=== PATIENT | female | born 1995 | race Caucasian/White ===

== ENCOUNTER → 2023-12-11 15:18 | Outpatient (REF) | payer BC, SELFPAY | LOC: PNTC 15:18 | PROVIDERS: ATTENDING PHYSICIAN Obstetrics & Gynecology | DX: Z36.0 Encounter for antenatal screening for chromosomal anomalies (principal); Z36.82 Encounter for antenatal screening for nuchal translucency; O34.80 Maternal care for other abnormalities of pelvic organs, unspecified trimester | CPT/HCPCS: 76801; 76813 ==

== ENCOUNTER → 2024-01-07 17:00 | Outpatient (REF) | payer BC, SELFPAY | LOC: RAD 17:00 | PROVIDERS: ATTENDING PHYSICIAN Obstetrics & Gynecology | DX: Z34.91 Encounter for supervision of normal pregnancy, unspecified, first trimester (principal); R93.89 Abnormal findings on diagnostic imaging of other specified body structures | CPT/HCPCS: 76815 ==

== ENCOUNTER → 2024-02-09 06:50 | Outpatient (REF) | payer BC, SELFPAY | LOC: PNTC 06:50 | PROVIDERS: ATTENDING PHYSICIAN Obstetrics & Gynecology | DX: E28.2 Polycystic ovarian syndrome (principal) | CPT/HCPCS: 76805 ==

== ENCOUNTER → 2024-02-20 15:15 | Outpatient (REF) | payer BC, SELFPAY ==
--- NOTE | 2024-02-20 15:32 | PN.DIAED06 ---
Meal Plan - Gestational
- Breakfast
Gestational Diabetes Meal Plan Name: 2000 calories
Breakfast - Total Carbohydrate (grams): 45
Breakfast - Starch Carbohydrate: 2
Breakfast - Fruit Carbohydrate: 0
Breakfast - Milk Carbohydrate: 1
Breakfast - Nonstarchy Vegetables: Yes
Breakfast - Meat/Protein: 1
Breakfast - Fat: 2
- Morning Snack
Morning Snack - Total Carbohydrate (grams): 30
Morning Snack - Starch Carbohydrate: 1
Morning Snack - Fruit Carbohydrate: 0
Morning Snack - Milk Carbohydrate: 1
Morning Snack - Nonstarchy Vegetables: Yes
Morning Snack - Meat/Protein: 0
Morning Snack - Fat: 0
- Lunch
Lunch - Total Carbohydrate (grams): 45
Lunch - Starch Carbohydrate: 1
Lunch - Fruit Carbohydrate: 1
Lunch - Milk Carbohydrate: 1
Lunch - Nonstarchy Vegetables: Yes
Lunch - Meat/Protein: 2
Lunch - Fat: 2
- Afternoon Snack
Afternoon Snack - Total Carbohydrate (grams): 30
Afternoon Snack - Starch Carbohydrate: 1
Afternoon Snack - Fruit Carbohydrate: 1
Afternoon Snack - Milk Carbohydrate: 0
Afternoon Snack - Nonstarchy Vegetables: Yes
Afternoon Snack - Meat/Protein: 1
Afternoon Snack - Fat: 0
- Dinner
Dinner - Total Carbohydrate (grams): 45
Dinner - Starch Carbohydrate: 2
Dinner - Fruit Carbohydrate: 1
Dinner - Milk Carbohydrate: 0
Dinner - Nonstarchy Vegetables: Yes
Dinner - Meat/Protein: 2
Dinner - Fat: 2
- Evening Snack
Evening Snack - Total Carbohydrate (grams): 45
Evening Snack - Starch Carbohydrate: 1
Evening Snack - Fruit Carbohydrate: 1
Evening Snack - Milk Carbohydrate: 1
Evening Snack - Nonstarchy Vegetables: Yes
Evening Snack - Meat/Protein: 1
Evening Snack - Fat: 0
--- NOTE | 2024-02-20 16:23 | PN.DE ---
Diabetes Education
- -
Román presented today for medical nutrition therapy. She is 22 weeks gestation with her first . Román was evaluated early for gestational diabetes since she has a history of PCOS.
I reviewed glucose metabolism in the body during and the rationale for keeping blood glucose levels within target ranges. We discussed the risks to the baby during and post with elevated glucose levels. Román was given written
material on managing gestational diabetes and I highlighted the fasting target range of <95 mg/dL and a 2 hour post of 120 mg/dL. Román demonstrated proper technique with doing a fingerstick glucose with a One Touch verio meter. We discussed the
monitoring schedule and she is aware of contacting [place] at [facility] on Friday.
Román traditionally follows a limited carbohydrate diet due to her PCOS history. She has a good knowledge base of macronutrients and often eats protein before eating any carbohydrates on a daily basis. I provided her with a 2000 calorie gestational
meal plan and we discussed it in detail. Román does not have any restrictions and I reviewed the importance of increasing exercise as tolerated, especially 45 minutes post meal to help lower glucose levels. I encouraged her to contact the office
if she has any concerns or if she should require insulin.
== END ==
LOC: DES 15:15
PROVIDERS: ATTENDING PHYSICIAN Obstetrics & Gynecology
DX: O24.419 Gestational diabetes mellitus in pregnancy, unspecified control (principal)
CPT/HCPCS: 99078

== ENCOUNTER 2024-06-28 09:43 | Inpatient (IN) | payer BC, SELFPAY ==
[2024-06-28 09:51] VITALS: BP 136/77; BMI 26.5
[2024-06-28] MEDS: LR 1000 IV ×2 (10:10→11:50)
[2024-06-28 10:26] LABS: Glucose - Point of Care 96 mg/dl (70-99)
[2024-06-28 10:37] LABS: % Basophils 0.2 % (0-2); % Immature Granulocytes 0.4 % (0-0.5); % Lymphocytes 7.9 % (20.5-51.1); % Neutrophils 86.5 % (42.2-75.2); Absolute Immature Granulocytes 0.1 10^3/uL (0-0.05); Absolute Lymphocytes 1.2 10^3/uL (1.2-3.4); Absolute Monocytes 0.7 10^3/uL (0.1-0.6); Absolute Neutrophils 12.7 10^3/uL (1.4-6.5); Hematocrit 37.9 % (37.0-47.0); Hemoglobin 12.9 g/dL (12.0-16.0); Mean Corpuscular Hgb 31.5 pg (27.0-31.0); Mean Corpuscular Volume 92.4 fL (81.0-99.0); Mean Platelet Volume 11.4 fL (7.4-10.4); Nucleated Red Blood Cells % 0 %; Platelet Count 187 10^3/uL (130-400); Red Cell Dist. Width 12.7 % (11.5-14.5); White Blood Cell Count 14.7 10^3/uL (4.8-10.8)
[2024-06-28] MEDS: SUBLIMAZE 100 MCG EPIDURAL (13:00)
[2024-06-28] MEDS: FENTANYL/BUPIVACAINE 100 EPIDURAL (13:01)
[2024-06-28 14:19] LABS: Glucose - Point of Care 124 mg/dl (70-99)
[2024-06-28 17:03] LABS: Glucose - Point of Care 124 mg/dl (70-99)
[2024-06-28] MEDS: TYLENOL 650 MG PO (22:22)
[2024-06-29 04:51] LABS: Hematocrit 32.9 % (37.0-47.0); Hemoglobin 11.6 g/dL (12.0-16.0)
[2024-06-29] MEDS: PRENATAL PLUS 1 TABLET PO (08:04)
[2024-06-29 13:34] LABS: Syphilis/T. pallidum Ab Reflex Negative (Negative)
[2024-06-30] MEDS: PRENATAL PLUS 1 TABLET PO (08:30)
[2024-06-30] MEDS: MOTRIN 600 MG PO (08:34)
== END 2024-06-30 12:45 | disposition home or self-care (01) | DRG 806 ==
LOC: LDRP 09:43
PROVIDERS: Student in an Organized Health Care Education/Training Program; ADMITTING PHYSICIAN Obstetrics & Gynecology
PROC: 0UQMXZZ Repair Vulva, External Approach (ICD-10-PCS; 2024-06-28)
PROC: 10E0XZZ Delivery of Products of Conception, External Approach (ICD-10-PCS; 2024-06-28)
PROC: 0KQM0ZZ Repair Perineum Muscle, Open Approach (ICD-10-PCS; 2024-06-28)
DX: O24.429 Gestational diabetes mellitus in childbirth, unspecified control (principal); O71.4 Obstetric high vaginal laceration alone; Z37.0 Single live birth; Z3A.40 40 weeks gestation of pregnancy; O70.0 First degree perineal laceration during delivery
CPT/HCPCS: 88307; 36415; 82962; 85014; 85018; 85025; 86780; 86850; 86900; 86901